=== PATIENT | male | born 1990 | race Caucasian/White ===

== ENCOUNTER 2018-01-17 20:37 | Emergency (ER) | payer MEDICAID ==
[~2018-01-17] VITALS: Ht 160 cm; Wt 70.3 kg
[2018-01-17 20:41] VITALS: Ht 160 cm; Wt 70.3 kg
[2018-01-17 22:44] VITALS: BP 133/70
== END 2018-01-17 22:44 | disposition home or self-care (01) ==
LOC: ED 20:37
DX: S67.191A Crushing injury of left index finger, initial encounter (principal); W22.8XXA Striking against or struck by other objects, initial encounter; Y93.89 Activity, other specified; Y92.89 Other specified places as the place of occurrence of the external cause; Y99.8 Other external cause status